=== PATIENT | male | born 1975 | race Asian ===

== ENCOUNTER 2018-10-20 19:35 | Emergency (ER) | payer OTHER ==
[~2018-10-20] VITALS: Ht 167.6 cm; Wt 13.6 kg
[2018-10-20 19:35] VITALS: TEMP 98.2
[2018-10-20 20:06] VITALS: BP 111/68
[2018-10-20] MEDS ORDERED: LORA1TAB17 PO ×2 (20:24)
[2018-10-20] MEDS ORDERED: DIVA500T2 PO (20:25)
[2018-10-20] MEDS ORDERED: BACL10TA4 PO (20:25)
[2018-10-20] MEDS ORDERED: FERRETTS325 MG PO (20:26)
[2018-10-20] MEDS ORDERED: FAMO20TA4 PO (20:26)
[2018-10-20] MEDS ORDERED: MULTIVITAMI1 PO (20:27)
[2018-10-20] MEDS ORDERED: FOLIC ACID400 MCG PO (20:27)
[2018-10-20] MEDS ORDERED: TRAZODONE HYDRO50 MG PO (20:27)
[2018-10-20] MEDS ORDERED: APAP325 MG PO (20:29)
== END 2018-10-20 20:10 | disposition other institution (70) ==
LOC: ED 19:35
DX: F28 Other psychotic disorder not due to a substance or known physiological condition (principal); Z04.6 Encounter for general psychiatric examination, requested by authority
CPT/HCPCS: 36415; 81000; 93005; 99285